=== PATIENT | female | born 1965 | race African-American/Black ===

== ENCOUNTER 2016-03-26 15:30 | Outpatient (RCR) | payer OTHER | END 2016-04-19 09:41 | disposition still patient (30) | LOC: WSPT 15:30 | DX: M54.2 Cervicalgia (principal) | CPT/HCPCS: G8981-GP; G8982-GP; G8983-GP ==

== ENCOUNTER → 2016-05-25 | Outpatient (CLI) | payer OTHER | LOC: MC.RAD 14:00 | DX: Z12.31 Encounter for screening mammogram for malignant neoplasm of breast (principal); Z80.3 Family history of malignant neoplasm of breast ==

== ENCOUNTER → 2017-06-14 | Outpatient (CLI) | payer OTHER | LOC: MC.RAD 10:20 | DX: Z12.31 Encounter for screening mammogram for malignant neoplasm of breast (principal) ==

== ENCOUNTER → 2018-06-17 | Outpatient (CLI) | payer OTHER | LOC: MC.RAD 09:40 | DX: Z12.31 Encounter for screening mammogram for malignant neoplasm of breast (principal) ==

== ENCOUNTER 2019-01-09 14:45 | Outpatient (RCR) | payer OTHER | END 2019-02-16 14:39 | disposition home or self-care (01) | LOC: MKS.ESL.PT 14:45 | DX: M79.671 Pain in right foot (principal) ==

== ENCOUNTER 2019-05-12 22:04 | Emergency (ER) | payer OTHER ==
[~2019-05-12] VITALS: Ht 172.7 cm; Wt 80.0 kg
[2019-05-12] MEDS ORDERED: HYDRODIURIL50 MG PO (22:14)
[2019-05-12 23:23] LABS: BASO % 0.4 % (0.0-2.0); GRAN # 5.7 (1.4-6.5); HEMATOCRIT 37.4 % (37.0-47.0); HEMOGLOBIN 12.6 g/dl (12.5-16.0); LYMPH # 0.9 (1.2-3.4); LYMPH % 12.2 % (20.0-51.0); MEAN CELL VOLUME 88 fl (80.0-100.0); MEAN CORPUSCULAR HEMOGLOBIN 30 pg (27.0-31.0); MEAN CORPUSCULAR HGB CONC 34 g/dl (33.0-37.0); MONO # 0.8 (0.1-0.6); MONO % 11.1 % (1.7-9.3); PLATELET COUNT 191 K/mm3 (130-400); RED BLOOD COUNT 4.24 M/mm3 (4.10-5.30); REDCELL DISTRIBUTION WIDTH-CV 12.7 % (11.5-14.5)
[2019-05-12 23:32] LABS: ALBUMIN 4.3 gm/dL (3.5-5.0); BILIRUBIN,TOTAL 0.9 mg/dL (0.0-1.0); CALCIUM 9.3 mg/dL (8.4-10.2); CREATININE, serum 0.81 (0.52-1.25); TOTAL PROTEIN 7.5 gm/dL (6.4-8.2)
[2019-05-12 23:34] LABS: POTASSIUM 2.7 mmol/L (3.4-5.0)
[2019-05-13] MEDS ORDERED: TAMIFLU 75MG75 MG PO (00:47)
[2019-05-13] MEDS ORDERED: K-TAB20 PO (00:47)
[2019-05-13] MEDS ORDERED: ZOFRAN ODT4 MG PO (00:52)
[2019-05-13 01:00] VITALS: BP 133/89; PULSE 72; TEMP 98.7
== END 2019-05-13 01:03 | disposition home or self-care (01) ==
LOC: COL.ER 22:04
PROVIDERS: Nurse Practitioner
DX: J09.X2 Influenza due to identified novel influenza A virus with other respiratory manifestations (principal); E87.6 Hypokalemia; I10 Essential (primary) hypertension
CPT/HCPCS: J2405; J7030

== ENCOUNTER 2019-05-13 03:53 | Emergency (ER) | payer OTHER ==
[~2019-05-13] VITALS: Ht 172.7 cm; Wt 80.0 kg
[~2019-05-13 03:53] MED LIST: HYDRODIURIL50 MG PO; K-TAB20 PO; TAMIFLU 75MG75 MG PO; ZOFRAN ODT4 MG PO
[2019-05-13 04:22] VITALS: TEMP 98.6
[2019-05-13 05:27] LABS: MEAN CELL VOLUME 89 fl (80.0-100.0); MEAN CORPUSCULAR HEMOGLOBIN 30 pg (27.0-31.0); MEAN CORPUSCULAR HGB CONC 34 g/dl (33.0-37.0); MEAN PLATELET VOLUME 12.2 fl (7.4-10.4); PLATELET COUNT 183 K/mm3 (130-400); RED BLOOD COUNT 4.04 M/mm3 (4.10-5.30); REDCELL DISTRIBUTION WIDTH-CV 12.5 % (11.5-14.5)
[2019-05-13 05:28] LABS: HEMATOCRIT 35.8 % (37.0-47.0)
[2019-05-13 05:37] LABS: ALANINE AMINOTRANSFERASE 27 U/L (9-52); ALBUMIN 4.2 gm/dL (3.5-5.0); ALKALINE PHOSPHATASE 60 U/L (50-136); ANION GAP 11 mmol/L (7-16); AST,SGOT 45 U/L (15-37); BILIRUBIN,TOTAL 0.8 mg/dL (0.0-1.0); BLOOD UREA NITROGEN 15 mg/dL (7-17); C-REACTIVE PROTEIN 1.6 mg/dL (0.0-0.9); CALCIUM 8.6 mg/dL (8.4-10.2); CARBON DIOXIDE 24 mmol/L (22-30); CHLORIDE 103 mmol/L (98-107); CREATININE, serum 0.68 (0.52-1.25); GLUCOSE 101 mg/dL (74-106); LIPASE 60 U/L (23-300); MAGNESIUM 1.9 mg/dL (1.6-2.3); SODIUM 139 mmol/L (137-145); TOTAL PROTEIN 7.5 gm/dL (6.4-8.2)
[2019-05-13 05:43] LABS: POTASSIUM 2.9 mmol/L (3.4-5.0)
[2019-05-13 05:48] LABS: TROPONIN-I < 0.012 ng/mL (0.000-0.035)
[2019-05-13 06:08] LABS: BAND 9 % (0-10); LYMPHOCYTE 5 % (20.0-51.0); NEUTROPHILS 80 % (42.0-75.2); PLATELET ESTIMATE NORMAL (NORMAL)
[2019-05-13 08:27] VITALS: BP 133/88; PULSE 65
== END 2019-05-13 08:30 | disposition home or self-care (01) ==
LOC: COL.ER 03:53
PROVIDERS: Emergency Medicine
DX: R10.30 Lower abdominal pain, unspecified (principal); J10.1 Influenza due to other identified influenza virus with other respiratory manifestations; E87.6 Hypokalemia; I10 Essential (primary) hypertension
CPT/HCPCS: J1170; J2405; J3480; J7120; Q9967

== ENCOUNTER → 2019-08-13 | Outpatient (CLI) | payer OTHER | LOC: MC.RAD 06-24 15:00 | DX: Z12.31 Encounter for screening mammogram for malignant neoplasm of breast (principal) ==

== ENCOUNTER 2020-05-05 11:10 | Emergency (ER) | payer OTHER ==
[~2020-05-05] VITALS: Ht 170.2 cm; Wt 71.4 kg
[2020-05-05 11:22] VITALS: TEMP 99.1
[2020-05-05] MEDS ORDERED: VITAMIN D31000 IU (11:43)
[2020-05-05 11:48] LABS: BASO # 0.1 (0.0-0.2); BASO % 2.2 % (0.0-2.0); EOS % 0.2 % (0-4.0); GRAN # 2.5 (1.4-6.5); HEMATOCRIT 40.7 % (37.0-47.0); HEMOGLOBIN 13.5 g/dl (12.5-16.0); LYMPH # 1.5 (1.2-3.4); LYMPH % 32.3 % (20.0-51.0); MEAN CELL VOLUME 90 fl (80.0-100.0); MEAN CORPUSCULAR HEMOGLOBIN 30 pg (27.0-31.0); MEAN CORPUSCULAR HGB CONC 33 g/dl (33.0-37.0); MEAN PLATELET VOLUME 11.4 fl (7.4-10.4); MONO # 0.4 (0.1-0.6); MONO % 9.1 % (1.7-9.3); PLATELET COUNT 256 K/mm3 (130-400); RED BLOOD COUNT 4.54 M/mm3 (4.10-5.30); REDCELL DISTRIBUTION WIDTH-CV 12.6 % (11.5-14.5)
[2020-05-05 11:53] LABS: ALANINE AMINOTRANSFERASE 20 U/L (4-34); ALBUMIN 4.9 gm/dL (3.5-5.0); ALKALINE PHOSPHATASE 77 U/L (50-136); ANION GAP 12 mmol/L (7-16); AST,SGOT 30 U/L (15-37); BILIRUBIN,TOTAL 0.9 mg/dL (0.0-1.0); BLOOD UREA NITROGEN 11 mg/dL (7-17); CALCIUM 10.1 mg/dL (8.4-10.2); CARBON DIOXIDE 24 mmol/L (22-30); CHLORIDE 104 mmol/L (98-107); CREATININE, serum 0.77 (0.52-1.25); GLUCOSE 107 mg/dL (74-106); LIPASE 78 U/L (23-300); POTASSIUM 3.3 mmol/L (3.4-5.0); SODIUM 140 mmol/L (137-145); TOTAL PROTEIN 8.5 gm/dL (6.4-8.2)
[2020-05-05 12:08] LABS: TROPONIN-I < 0.012 ng/mL (0.000-0.035)
[2020-05-05] MEDS ORDERED: LEXAPRO 10MG10 MG PO (12:56)
[2020-05-05] MEDS ORDERED: ATIVAN 0.50.5 MG/TAB PO (12:59)
[2020-05-05 13:15] VITALS: BP 133/85; PULSE 101
== END 2020-05-05 13:30 | disposition home or self-care (01) ==
LOC: COL.ER 11:10
PROVIDERS: Physician Assistant
DX: F41.0 Panic disorder [episodic paroxysmal anxiety] (principal); R07.2 Precordial pain; I10 Essential (primary) hypertension; F32.9 Major depressive disorder, single episode, unspecified
CPT/HCPCS: J2060; J7030

== ENCOUNTER → 2021-08-16 | Outpatient (CLI) | payer OTHER ==
[~2021-08-16] MED LIST changes: +ATIVAN 0.50.5 MG/TAB PO; +LEXAPRO 10MG10 MG PO; +VITAMIN D31000 IU
== END ==
LOC: MC.RAD 13:51
DX: Z12.31 Encounter for screening mammogram for malignant neoplasm of breast (principal)

== ENCOUNTER → 2024-01-22 | Outpatient (CLI) | payer OTHER | LOC: MC.RAD 07:31 | DX: Z12.31 Encounter for screening mammogram for malignant neoplasm of breast (principal); N63.11 Unspecified lump in the right breast, upper outer quadrant ==